=== PATIENT | female | born 1995 | race Caucasian/White ===

== ENCOUNTER → 2021-11-27 13:19 | Outpatient (CLI) | payer OTHER, SELFPAY ==
[2021-11-27 14:42] LABS: Appearance Urine UA CLEAR; Bilirubin Urine UA NEGATIVE (NEGATIVE); Color Urine UA YELLOW; Glucose Urine UA NEGATIVE (Negative); Ketones Urine UA NEGATIVE (NEGATIVE); Leukocyte Esterase Urine UA NEGATIVE (NEGATIVE); Nitrite Urine UA NEGATIVE (Negative); Occult Blood Urine UA NEGATIVE (Negative); Protein Urine UA NEGATIVE (Negative); Urobilinogen Urine UA 0.2 E.U./dL (0.2)
[2021-11-27 14:43] LABS: pH Urine UA 6.5 (4.5-8.0)
[2021-11-27 15:19] LABS: Add Manual Diff / Slide Review NO; Basophils Absolute Auto 0 /uL (0-100); Basophils Percent Auto 0.2 % (0-2); Eosinophils Absolute Auto 100 /uL (0-450); Eosinophils Percent Auto 1.4 % (2-4); Hematocrit 35.9 % (36-46); Hemoglobin 12.2 g/dL (12.0-16.0); Lymphocytes Absolute Auto 1600 /uL (1100-4500); Lymphocytes Percent Auto 20.6 % (25-40); Mean Corpuscular HGB Conc 34.1 % (30-36); Mean Corpuscular Hemoglobin 30.3 PG (26-34); Monocytes Absolute Auto 500 /uL (0-900); Monocytes Percent Auto 7.1 % (3-14); Neutrophils Absolute Auto 5400 /uL (1500-7000); Neutrophils Percent Auto 70.7 % (50-75); Platelet Count 227 X10^3/uL (150-400); Red Blood Cell Count 4.04 X10^6/uL (4.0-5.2); Red Cell Distribution Width 12.8 % (11.6-14.8); White Blood Cell Count 7.6 X10^3/uL (4.5-11.0)
[2021-11-28 05:33] LABS: RPR Screen Non Reactive (Non Reactive)
[2021-11-28 09:27] LABS: Varicella IgG Antibody 840 index (Immune >165)
[2021-11-28 15:37] LABS: Hepatitis B Surface Antigen NEGATIVE s/c (NEGATIVE)
[2021-11-28 15:41] LABS: HIV 1 & 2 Ab/Ag 4th Gen Combo NEGATIVE (NEGATIVE); Hep C Virus Ab w/Reflex Quant NEGATIVE s/c (NEGATIVE)
== END ==
PROVIDERS: Referring Provider Obstetrics & Gynecology; Visit Provider Obstetrics & Gynecology
DX: Z34.81 Encounter for supervision of other normal pregnancy, first trimester (principal); Z3A.10 10 weeks gestation of pregnancy
CPT/HCPCS: 36415; 80055; 81003; 86787; 86803; 86850; 86900; 86901; 87389

== ENCOUNTER → 2022-01-02 15:28 | Outpatient (CLI) | payer OTHER, SELFPAY | PROVIDERS: Visit Provider Obstetrics & Gynecology | DX: Z34.82 Encounter for supervision of other normal pregnancy, second trimester (principal); Z3A.15 15 weeks gestation of pregnancy | CPT/HCPCS: 87086 ==

== ENCOUNTER → 2022-01-08 13:17 | Outpatient (CLI) | payer OTHER, SELFPAY ==
[2022-01-10 20:42] LABS: AFP, Serum 73.7 ng/mL (.); Calc Gestational Age Ultrasound (.); Estriol, Free 1.68 ng/mL (.); Inhibin A, Dimeric 103.38 pg/mL (.); Inhibin A, MoM 0.63 (.); Maternal Ethnicity Caucasian (.); Maternal Weight 138 lbs (.); Number of Fetuses No (.); OSBR Risk 1 IN 806 (.); Results Report (.); Test Results *Screen Negative* (.); hCG, MoM 0.69 (.); hCG, Serum 30722 mIU/mL (.)
== END ==
PROVIDERS: Referring Provider Obstetrics & Gynecology; Visit Provider Obstetrics & Gynecology
DX: Z34.82 Encounter for supervision of other normal pregnancy, second trimester (principal); Z3A.16 16 weeks gestation of pregnancy
CPT/HCPCS: 36415; 82105; 82677; 84702; 86336

== ENCOUNTER → 2022-01-30 13:42 | Outpatient (CLI) | payer OTHER, SELFPAY ==
[2022-01-30 17:45] LABS: Urine N gonorrhoeae NOT DETECTED
[2022-01-30 17:46] LABS: Urine Chlamydia NOT DETECTED
== END ==
PROVIDERS: Visit Provider Obstetrics & Gynecology
DX: Z34.82 Encounter for supervision of other normal pregnancy, second trimester (principal); Z3A.19 19 weeks gestation of pregnancy
CPT/HCPCS: 87491; 87591

== ENCOUNTER → 2022-02-04 12:35 | Outpatient (CLI) | payer OTHER, SELFPAY ==
--- NOTE | 2022-02-04 12:36 | DI.US.S_ITS ---
PROCEDURE: US OB >= 14 WEEKS FETUS INDICATIONS: ANATOMY SCAN OUTSIDE/PRIOR DATING DATA: Last menstrual period (LMP): 09/16/2021. LMP-based estimated date of delivery (MUNA): 06/23/2022 First dating scan (date and location): 11/25/2021 Estimated date of delivery (MUNA) from first dating scan: 06/21/2022. The calculations are made using the ultrasound MUNA of 06/21/2022. TECHNIQUE: Real-time scanning was performed of the fetus, with image documentation and biometric measurements. COMPARISON: [facility], , OB >= 14 WEEKS FETUS, 01/30/2022, 13:29. FINDINGS: General: A single living intrauterine gestation is present. Presentation: Transverse left/breech. Placenta: Placental position is anterior , without previa. Amniotic fluid index: 16.8 cm, normal range is 5-24 cm. heart rate: 157 beats per minute. Maternal cervical canal: 4.5 cm long. Normal lower limit is 2.5 cm. biometrics: Biparietal diameter: 4.6 cm. 20 weeks 0 days Head circumference: 18.2 cm. 20 weeks 4 days Abdominal circumference: 16.4 cm. 21 weeks 3 days Femur length: 3.3 cm. 20 weeks 2 days Estimated gestational age by initial ultrasound: 20 weeks 3 days Composite gestational age from present scan: 20 weeks 4 days Estimated weight and percentile: 384 g. 71st percentile. Anatomic survey: Neuro: Ventricles are non-dilated at less than 10 mm. Cisterna magna is normal at 3-11 mm. Cerebellum is normal in size and morphology. Nuchal skin fold: Normal at less than 6 mm between 14-21 weeks gestational age. Face: Nose and lips, facial profile are normal. Spine: No evidence for spina bifida. Heart: 4-chambered heart is present, with normal ventricular outflow tracts. Diaphragm: Diaphragm is intact. Stomach: Left-sided stomach is present. Kidneys: No hydronephrosis. Normal is less than 5 mm in 2nd trimester, less than 7 mm in 3rd trimester. Cord: 3-vessel cord has orthotopic insertion. Bladder: Normal in size. Extremities: All 4 extremities identified. IMPRESSION: 1. Single live intrauterine with an estimated gestational age of 20 weeks 3 days. 2. Estimated weight 384 g. 74th percentile. 3. anatomy scan is normal. We strive to produce accurate, complete, and clear reports of imaging services. To assist us in improving patient care, this report was composed using standard report templates and voice recognition software. Therefore, it may contain abnormal punctuation, insertions and/or omissions. Occasional wrong-word or sound-alike substitutions may occur. Though we review the report and make efforts to correct it, we do recommend that the report be read carefully in proper context to recognize any text inaccuracies. Dictated by: Antonio Kaye M.D. on 02/04/2022 at 15:15 Approved by: Antonio Kaye M.D. on 02/04/2022 at 15:20
== END ==
PROVIDERS: Referring Provider Obstetrics & Gynecology; Visit Provider Obstetrics & Gynecology
DX: Z34.82 Encounter for supervision of other normal pregnancy, second trimester (principal); Z3A.20 20 weeks gestation of pregnancy
CPT/HCPCS: 76811

== ENCOUNTER → 2022-03-19 13:33 | Outpatient (CLI) | payer OTHER, SELFPAY ==
[2022-03-19 16:46] LABS: Hematocrit 28.5 % (36-46); Hemoglobin 10.1 g/dL (12.0-16.0)
[2022-03-19 16:52] LABS: GTT (PREG) 1 Hour PP 50gm Dose 140 mg/dL (76-139)
== END ==
PROVIDERS: Referring Provider Obstetrics & Gynecology; Visit Provider Obstetrics & Gynecology
DX: Z34.82 Encounter for supervision of other normal pregnancy, second trimester (principal); Z3A.26 26 weeks gestation of pregnancy
CPT/HCPCS: 36415; 82950; 85014; 85018

== ENCOUNTER → 2022-03-31 07:58 | Outpatient (CLI) | payer OTHER, SELFPAY ==
[2022-03-31 10:17] LABS: Glucose Fasting Gestational 71 mg/dL (76-95)
[2022-03-31 11:02] LABS: Glucose 1 Hour Gest 126 mg/dL (76-180)
[2022-03-31 11:43] LABS: Glucose 2 Hour Gest 115 mg/dL (76-155)
[2022-03-31 11:51] LABS: Glucose Tol Interp,Gestational INTERPRETATION
[2022-03-31 12:21] LABS: Glucose 3 Hour Gest 58 mg/dL (76-140)
== END ==
PROVIDERS: Referring Provider Obstetrics & Gynecology; Visit Provider Obstetrics & Gynecology
DX: R73.09 Other abnormal glucose (principal)
CPT/HCPCS: 36415; 82951; 82952

== ENCOUNTER 2022-05-02 07:34 | Outpatient (CLI) | payer OTHER, SELFPAY ==
[2022-05-02 08:28] LABS: Appearance Urine UA CLEAR; Bilirubin Urine UA NEGATIVE (NEGATIVE); Color Urine UA YELLOW; Glucose Urine UA NEGATIVE (Negative); Ketones Urine UA NEGATIVE (NEGATIVE); Leukocyte Esterase Urine UA 1+ (NEGATIVE); Nitrite Urine UA NEGATIVE (Negative); Occult Blood Urine UA NEGATIVE (Negative); Protein Urine UA NEGATIVE (Negative); Urobilinogen Urine UA 0.2 E.U./dL (0.2)
[2022-05-02 09:04] LABS: Bacteria Urine Few (2-10); Culture Indicated Urine Specimen Cultured; RBC Urine 0-1/HPF (0-5/HPF); Squamous Epithelial Cell Urine 1-5 /HPF (0-5/HPF); Transitional Epi Cells Urine 0-1/HPF (0-5/HPF); WBC Urine 1-5/HPF (0-5/HPF)
--- NOTE | 2022-05-02 09:34 | PM.OBTRLD ---
Visit Information Visit Information Date of evaluation: 05/02/22 Primary OB Provider: Michelle Samuels On-call OB Provider: Evonne Chavez Reason for Evaluation: Yes other Comments/Additional reasons for admission: cramping 26 yo brought in at [id number] EGA due to calling with cramping. She reports feeling crampy in her mid abdomen, points to a localized area left of and just inferior to umbilicus. No noted abdominal tightening. Denies feeling any contractions, reports it does not feel like contractions. Also reports that has general discomfort since standing this morning, with standing or leaning over has some discomfort in the midline from near pelvic bone to her umbilicus. Better when she was sitting. Feels some general tightness, discomfort at inner thighs as well. Does not feel any vaginal pressure, but would like a cervical check to make sure discomfort is not from head being low. Vital Signs Vital Signs: Afebrile BP 135/85 P86 [facility] Medical History (Updated 01/15/22 @ 06:38 by Michelle Samuels MD) ADHD Anemia (~2017) Anxiety Bacterial vaginosis Chlamydia (~2014) Migraine gingivitis Wears glasses Surgical History (Updated 11/25/21 @ 20:15 by Candie Mahan) Anesthesia History of wisdom tooth extraction Vaginal delivery (~05/03/18) Family History (Updated 11/25/21 @ 20:17 by Candie Mahan) Grandmother Clotting disorder Stroke Grandfather Cancer Grandfather Cancer Social History marital status: number of children: 1 household members: spouse and children lives independently: Yes housing: house pets and animals: No education level: high school occupational status: employed current occupational exposures/hazards: Yes ([employer]) seatbelt use: always water heater temp set < 120 deg: Yes (will check) working smoke detector in home: Yes fire extinguisher in home: Yes carbon monox detector in home: Yes firearms in home: No do you feel safe at home: Yes Smoking Status: Former smoker (vape) second hand exposure: No alcohol intake: former substance use type: does not use during the past year weight has: remained stable well-balanced diet: daily or most days daily servings fruits/ve-4 caffeine: Yes (200mg limit) Type(s) of exercise: walking and irregular exercise Objective Labs Labs: Laboratory Results - last 24 hr 05/02/22 08:00 Urine Color Yellow Urine Appearance Clear Urine pH 7.0 Ur Specific [place] 1.010 Urine Protein Negative Urine Glucose (UA) Negative Urine Ketones Negative Urine Occult Blood Negative Urine Nitrate Negative Urine Bilirubin Negative Urine Urobilinogen 0.2 Ur Leukocyte Esterase 1+ H Urine RBC 0-1/hpf Urine WBC 1-5/hpf Ur Squamous Epith Cells 1-5 /hpf Ur Transition Epith Cell 0-1/hpf Urine Bacteria Few (2-10) H Ur Culture Indicated? Specimen cultured Evaluation Evaluation Baseline heart rate: 135 Variability: Average (6-10) monitor accelerations: Present Monitor Decelerations: Absent Status: Category l Cervical dilation (cm): 0 Cervical effacement (%): 0 Diagnosis, Plan/Disposition Plan/Disposition Plan: 32 weeks, cramping. No signs of contractions. No signs any concerning etiology on abdominal exam and vital signs. FHR category 1, NST reactive. By her description, much of her discomfort appears musculoskeletal. Discussed to consider trying an abdominal binder to help with some of her discomfort. PTL precautions reviewed, discussed if she does note abdominal tightening, contractions even if not comfortable if regular, having 6 or more frequent per hour and persisting, then should call and return.. OB Disposition: home
== END 2022-05-02 09:35 | disposition home or self-care (01) ==
LOC: LABOR 09:47 → OB 05-05 10:17
PROVIDERS: Obstetrics & Gynecology; PCP Pediatrics; Referring Provider Obstetrics & Gynecology; Visit Provider Obstetrics & Gynecology
DX: O26.893 Other specified pregnancy related conditions, third trimester (principal); R10.9 Unspecified abdominal pain; Z3A.32 32 weeks gestation of pregnancy
CPT/HCPCS: 59025; 81001; 87086; G0378; G0379

== ENCOUNTER → 2022-05-27 10:20 | Outpatient (CLI) | payer OTHER, SELFPAY ==
[2022-05-28 11:51] LABS: Strep Grp B PCR POS for Grp B Strep
== END ==
PROVIDERS: Visit Provider Obstetrics & Gynecology
DX: Z34.83 Encounter for supervision of other normal pregnancy, third trimester (principal); Z3A.36 36 weeks gestation of pregnancy
CPT/HCPCS: 87653

== ENCOUNTER 2022-06-19 07:51 | Outpatient (CLI) | payer OTHER, SELFPAY | END 2022-06-19 09:15 | disposition home or self-care (01) | LOC: LABOR 09:37 → OB 06-23 11:46 | PROVIDERS: Referring Provider Obstetrics & Gynecology; Visit Provider Obstetrics & Gynecology | DX: Z34.83 Encounter for supervision of other normal pregnancy, third trimester (principal); Z3A.39 39 weeks gestation of pregnancy | CPT/HCPCS: 59025; 84112; G0378; G0379 ==

== ENCOUNTER 2022-06-22 15:27 | Inpatient (IN) | payer OTHER, SELFPAY ==
--- NOTE | 2022-06-22 15:44 | P.HPOB_ITS ---
OB HPI Date/Time Date of admission: 06/22/22 Date Patient Seen: 06/22/22 Time Patient Seen: 15:40 History of Present Condition Chief complaint: maternity MUNA Calculator Estimated Delivery Date Method Current WG Current Estimate 06/23/22 LMP (Certain) 39w 6d Other Estimates 06/21/22 Ultrasound #1 40w 1d Estimated Gestational Age (weeks): 39.6 : 2 Para: 1 Narrative: 26YO @ [id number] by LMP, concordant with early ultrasound, presents for evaluation of labor. Began juju at 2pm, with contractions immediately strong and 3 minutes apart. Has noticed some bloody discharge when wiping. No leaking fluid. Planning an epidural. Is aware her primary OB, , is out of town this week. Accompanied by supportive . care: good care, initiated at week # (10), number of visits (13) and pounds weight gain (58) Dating criteria OB: LMP confirmed by 1st trimester US Ultrasounds: normal mid trimester US Obstetrical complications: other (anemia- received IV Fe x2 doses) Medical complications OB: none Preadmission Labs Last OB Lab Results: Blood Type AB Positive 11/27/21 13:58 Antibody Screen Negative 11/27/21 13:58 Hematocrit 28.5 % (36-46) L 03/19/22 14:46 Hemoglobin 10.1 g/dL (12.0-16.0) L 03/19/22 14:46 Hepatitis B Surface Antigen Negative s/c (NEGATIVE) 11/27/21 13 :58 Hepatitis C Antibody Negative s/c (NEGATIVE) 11/27/21 13:58 Rubella Antibody 149.0 IU/mL (>15) 11/27/21 13:58 Varicella-Zoster IgG Antibody 840 index (Immune >165) 11/27/21 13:58 Glucose 1 Hour 140 mg/dL (76-139) H 03/19/22 16:44 Group B Streptococcus (PCR) Pos for grp b strep H 05/27/22 10:2 0 Glucose Tolerance Testing: Fasting (71), 1 hr (126), 2 hr (115) and 3 hr (58) -: Chlamydia screen: negative and Gonorrhea screen: negative Genetic Screens: Quad screen: Normal Prior (ies) Past Pregnancies Del. Date GA/Weeks Labor Lgth Wt Sex Route Outcome Anesthesia Place Delv Breastfeed Preg Comp Name 05/03/18 40 12 3.714 kg Female vaginal live - full term epidural ANGELIA [place] 2 1/2 yrs other Mei Delivery Date: 05/03/18 Last Updated by: Adrianna Burch RReguloNRegulo Anemia Evaluation Evaluation Baseline heart rate: 150 Variability: Moderate (11-25) monitor accelerations: Present Monitor Decelerations: Absent Contraction Frequency (minutes): 2 Uterine Contraction Intensity: Moderate Status: Category l Dilation (cm): 4 Effacement (%): 90 station: -1 Position of cervix: posterior Consistency: soft PFSH Medical History ADHD Anemia (~2017) Anxiety Bacterial vaginosis Chlamydia (~2014) Migraine gingivitis Wears glasses Surgical History Anesthesia History of wisdom tooth extraction Vaginal delivery (~05/03/18) Family History Grandmother Clotting disorder Stroke Grandfather Cancer Grandfather Cancer Social History marital status: number of children: 1 household members: spouse and children lives independently: Yes housing: house pets and animals: No education level: high school occupational status: employed current occupational exposures/hazards: Yes ([employer]) seatbelt use: always water heater temp set < 120 deg: Yes (will check) working smoke detector in home: Yes fire extinguisher in home: Yes carbon monox detector in home: Yes firearms in home: No do you feel safe at home: Yes Smoking Status: Former smoker (vape) second hand exposure: No alcohol intake: former substance use type: does not use during the past year weight has: remained stable well-balanced diet: daily or most days daily servings fruits/ve-4 caffeine: Yes (200mg limit) Type(s) of exercise: walking and irregular exercise Meds Home Medications and Allergies Home Medications Medication Instructions Recorded Confirmed Type acetaminophen 325 mg capsule 650 mg PO Q6H PRN 11/18/21 06/17/22 History prenat.vits,candido,jxo-[id number] 1 tab PO DAILY 11/18/21 06/17/22 History fluconazole 150 mg tablet 150 mg PO Q3D 2 doses #2 tabs 01/10/22 06/17/22 Rx (Diflucan) Allergies Allergy/AdvReac Type Severity Reaction Status Date / Time No Known Drug Allergies Allergy Unverified 06/17/22 15:01 Review of Systems Review of Systems ROS: Yes All systems reviewed with the patient and are negative except as otherwise documented OB Exam Narrative Exam Narrative: VS: BP 111/70mmHg, HR 87bpm, T 36.3C Temporal Resp Effort & Inspection: normal respiratory effort Auscultation: clear to auscultation bilaterally Cardio Rate: regular rate Rhythm: regular rhythm Heart Sounds: S1 normal and S2 normal Objective Labs Labs: Admit CBC: WBC-6.2, Hgb-10.9, Hct-32.2, Plt-180 Assessment and Plan Assessment and Plan Assessment and Plan narrative: A: Term [place] Active labor GBS prophylaxis indicated Anemia, mild Cat I FHR P: Admit, routine orders. PCN for GBS prophylaxis. Expectant management of labor. Epidural when requested. Notified OB back-up, , who will be called to attend the . Reassess in 4 hours or sooner, PRN.
[2022-06-22 16:11] LABS: Add Manual Diff / Slide Review NO; Basophils Absolute Auto 0 /uL (0-100); Basophils Percent Auto 0.3 % (0-2); Eosinophils Absolute Auto 100 /uL (0-450); Eosinophils Percent Auto 0.8 % (2-4); Hematocrit 32.2 % (36-46); Hemoglobin 10.9 g/dL (12.0-16.0); Lymphocytes Absolute Auto 1300 /uL (1100-4500); Lymphocytes Percent Auto 21.5 % (25-40); Mean Corpuscular Hemoglobin 28.1 PG (26-34); Mean Corpuscular Volume 82.7 fL (80-100); Monocytes Absolute Auto 500 /uL (0-900); Monocytes Percent Auto 7.4 % (3-14); Neutrophils Absolute Auto 4300 /uL (1500-7000); Platelet Count 180 X10^3/uL (150-400); Red Blood Cell Count 3.89 X10^6/uL (4.0-5.2); Red Cell Distribution Width 15.1 % (11.6-14.8); White Blood Cell Count 6.2 X10^3/uL (4.5-11.0)
[2022-06-22] MEDS: PENICILLIN G POTASSIUM 5,000,000 UNIT in DEXTROSE 5% IN WATER 250 ML 250 UNIT IV (16:11)
[2022-06-22] MEDS: LACTATED RINGERS 1,000 ML 100 ML IV (16:12)
[2022-06-22 16:32] LABS: COVID19 -Nasal RAPID Negative (Negative)
[2022-06-22] MEDS: EPI EPIDURAL (17:10)
[2022-06-22] MEDS: FENT 2 MCG/ML EPIDURAL (17:10)
[2022-06-22] MEDS: BUPIV 0.125% EPIDURAL (17:10)
[2022-06-22 17:40] VITALS: BP 108/63
--- NOTE | 2022-06-22 17:49 | PM.OBPNLAB ---
Date/Time Date Patient Seen: 06/22/22 Time Patient Seen: 17:49 Pain Control Pain control: epidural Comments: Met with pt. H&P and office notes reviewed. I had met the patient in the past in OB triage. Patient admitted now labor. She just received her epidural and is comfortable with the epidural. She received her 1st dose of penicillin for GBS prophylaxis. She is not feeling any pressure. For cervical exam was approximately 2 hours ago. Pelvic Exam Dilation (cm): 4 Effacement (%): 90 station: -1 Comments: Cervix not rechecked at this time. Contractions Contraction frequency (min): 6 Contraction intensity: Moderate Status status: Category l Monitor Accelerations: Present Monitor Decelerations: Absent Monitor Variability: Moderate Assessment and Plan Assessment: active labor Plan: continuous present management Comments: EFM category 1. She received a 1st dose ofpenicillin for GBS prophylaxis. Will recheck her cervix in 2 hours, earlier as needed.
[2022-06-22] MEDS: PENICILLIN G POTASSIUM 3,000,000 UNIT/50 ML FROZ.PIGGY 100 UNIT IV (20:01)
--- NOTE | 2022-06-22 20:22 | P.PNOB_ITS ---
Date/Time Date Patient Seen: 06/22/22 Time Patient Seen: 20:10 Pain Control Pain control: epidural Comments: Comfortable with the epidural. Feeling some hormone type shakes. Not feeling any pressure. Pelvic Exam Dilation (cm): 5 Effacement (%): 80 station: -2 Amniotic membrane status: Intact Comments: vertex not well enough applied for AROM. Contractions Contraction frequency (min): 4 Contraction pattern: Regular Contraction intensity: Moderate Status status: Category l Heart Rate Baseline: 135 Monitor Accelerations: Present Monitor Decelerations: Variable (rare) Monitor Variability: Moderate Assessment and Plan Assessment: other (early labor) Plan: continuous present management Comments: Cat 2 EFM, rare variable decel. Overall reassuring She just received her 2nd dose of penicillin. 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 Offered, patient declines Pitocin augmentation. Vertex not well enough applied currently for AROM. She would not desires AROM for now anyway. Currently desires to let labor progress naturally. Will re-check cervix in approx 4 hours.
--- NOTE | 2022-06-22 22:14 | PM.OBPNLAB ---
Date/Time Date Patient Seen: 06/22/22 Time Patient Seen: 22:14 Pain Control Pain control: epidural Comments: feeling some pressure Pelvic Exam Dilation (cm): 9 Effacement (%): 80 station: +1 Amniotic membrane status: Ruptured (SROM@ 2110) Comments: anterior lip. Unable to reduce with a push Contractions Contraction frequency (min): 2 Contraction pattern: Regular Contraction intensity: Moderate Status status: Category ll Heart Rate Baseline: 145 Monitor Accelerations: Periodic Monitor Decelerations: Early and Late (occasional) Monitor Variability: Minimal (episodes average variability, but more episodes minimal now) Assessment and Plan Assessment: active labor Comments: anticipate pushing soon
--- NOTE | 2022-06-23 00:33 | P.PCNOB_ITS ---
Labor & Delivery Delivery date: 06/22/22 Intrapartal Events: Deceleration (non repetitive in 2nd stage) Cervical ripening method: none Induction method: none Delivery monitor: none Route of delivery: Episiotomy description: None L&D Laceration Description: Perineal - 2nd Degree Delivery repair: chromic Quantitative Blood Loss: 300 Anesthesia Type: Epidural Complications: none Narrative: Of note: long umbilical noted. Measure 118cm over intact perineum. Placenta delivered spontaneously/intact/three-vessel cord. 2nd degree perineal lac repaired. She progressed to completely dilated. ?She began pushing. She pushed approximately 30 minutes and had a spontaneous vaginal delivery over an intact perineum from the CHARLES position. ?Nuchal cord x 2 reduced. On delivery cord then also loosely wrapped around body and wrapped around leg twice. ?After delivery of the head, anterior followed by posterior shoulder were delivered without difficulty with the patient pushing, followed by the remainder of the body. ?A b anthony boy was delivered at 2318. The baby cried spontaneously, appeared vigorous and was placed on the maternal abdomen. ?After 4 minutes, cord was clamped and cut. Placenta delivered spontaneously approximately 16 minutes later. ?She had normal bleeding after delivery of the placenta. ?She was given routine Pitocin IV. On inspection she had a second-degree perineal laceration?which was repaired in the usual fashion with 3-0 chromic She did well and was left to recover in good condition. [place] Baby 1: Infant gender: Male Presentation: vertex Placenta delivery description: Spontaneous Cord Vessel Description: 3 Vessels, Nuchal Cord (x2), Around Body x1 and Around Extremity x2 score (1 min): 9 score (5 min): 10 weight: 8 lb 12.285 oz Plan for aftercare: Routine care
[2022-06-23] MEDS: IBUPROFEN 600 MG TABLET PO ×4 (02:10→21:46)
[2022-06-23] MEDS: ACETAMINOPHEN 325 MG TABLET 650 MG PO ×4 (02:10→21:46)
--- NOTE | 2022-06-23 04:10 | PC.NURSE ---
Pitocin 30mu/500lr started at 50ml/hr at 2328 per MD verbal order. Pitocin increased to 200ml/hr at 2334 per MD verbal order. Pitocin was completed around 0300am. Medication would not allow nurse to chart. Error for incorrect unit.
[2022-06-23] MEDS: DOCUSATE 100 MG CAPSULE PO (08:35)
--- NOTE | 2022-06-23 17:32 | PM.OBPN.1 ---
Subjective - OB Subjective Patient comments: tolerating diet and other (Uncomfortable uterine cramping, but controlled with the ibuprofen) [place] baby status: doing well and nursing well feeding status: exclusively breast feeding Narrative: Lochia normal. Voiding without difficulty. Date Patient Seen: 06/23/22 Time Patient Seen: 16:50 Exam Vital Signs (past 8 hours): Temp 97.8F, Pulse 76, BP 104/69 RR 18 Narrative Exam Narrative: General: ?Well-appearing female Abdomen: ?Soft, nontender, nondistended. ?Fundus U-1 firm, nontender Extremities: ?No pedal edema Objective Labs Result Diagrams: 06/22/22 16:00 Assessment & Plan Plan day: 1 plan OB: routine care Comments: Doing well Time Spent With Patient Time: Total time spent is greater than 50% in coordination of care (as documented) at patient's floor/unit and/or counseling patient: Time with patient: less than 15 minutes
[2022-06-23] MEDS: LANOLIN OINT 7 GM 1 APPLIC TOP (21:47)
--- NOTE | 2022-06-24 05:42 | PM.OBDS.1 ---
Discharge Providers Provider Date of admission: 06/22/22 15:27 Discharge Date: 06/24/22 Primary care physician: Flower GALAN Provider Consults: 06/24/22 00:49 Consult to Employment Law Attorney Routine Comment: Discharge provider: Evonne Chavez MD Summary Hospital Course Date Patient Seen: 06/24/22 Hospital Course: 6YO @ [id number] by LMP, concordant with early ultrasound, presented in labor at 4 cm dilated.? She received an epidural for anesthesia. She had spontaneous rupture membranes and continued to progress in labor to completely dilated. She had a spontaneous vaginal delivery of a male weighing 8 lb 12 oz with Apgars of 9 and 10. She has had a normal course. She is without problems. Her lochia has remained normal. Her perineal discomfort and routine uterine cramping is controlled with Tylenol and ibuprofen. Today on day 2, she reports her uterine cramping now is only when she is . Her blood pressure has remained normal. Vital signs are normal. The baby is doing well and has been discharged. Patient will be discharged home on day 2 with a routine visit in 6 weeks. Peripartum Data Infant Delivery Method: Natural Vaginal Laceration Description: Perineal - 2nd Degree complications: none 1: Gender: Male Disposition of : home Discharge Diagnosis (1) Status post vaginal delivery: Status: Acute Problem Details: Discharge to home. Follow-up in 6 weeks for a routine appointment. Status at Discharge Cognitive/behavioral status at discharge: oriented Functional status at discharge: independent ambulation Overall status at discharge: patient is progressing back to baseline Time Spent with Patient Time attestation: Total time spent providing and/or coordinating discharge services: Objective Labs Result Diagrams: 06/22/22 16:00 Discharge Plan Discharge Plan Patient Disposition: Home Provider Discharge Comment: Status post spontaneous vaginal delivery at 39 weeks Discharge orders & Medications Prescriptions: New acetaminophen 325 mg Tablet 650 mg PO Q6HR PRN (Reason: Pain, Mild (1-3)) Qty: 1 0RF ibuprofen 600 mg Tablet 600 mg PO Q6HR PRN (Reason: Pain, Mild (1-3)) Qty: 30 0RF Continued prenat.vits,candido,[id number]-[id number]-xfuzt Tablet 1 tab PO DAILY acetaminophen 325 mg capsule 650 mg PO Q6H PRN (Reason: Pain (Scale Score 1-3)) Discontinued fluconazole [Diflucan] 150 mg tablet 150 mg PO Q3D Qty: 2 6RF Rx Instructions: Repeat second dose 72 hrs. after first dose. Follow up/Referrals: Michelle Samuels MD [Physician] - (Please follow up with Dr. Samuels: August 07 @ 3:30pm- appt. Please arrive 15 minutes early. If you have any questions/concerns please call ) Discharge Health Status Multidrug resistant organism: No MDRO Diet/Activity/Treatments Diet: Regular Skin/Wound/Dressing Care Report to your healthcare provider any signs of infection, such as:: chills, fever and increased pain Visit Report/Discharge Packet Instructions: DI for Depression, DI for and Nipple Soreness Stand Alone Forms: Discharge: Care Discharge Data Primary Care Provider: Flower Lopez
[2022-06-24 08:29] VITALS: TEMP 36.7
[2022-06-24] MEDS: IBUPROFEN 600 MG TABLET PO (08:29)
[2022-06-24] MEDS: DOCUSATE 100 MG CAPSULE PO (08:29)
[2022-06-24 08:31] VITALS: TEMP 36.7
[2022-06-24] MEDS: ACETAMINOPHEN 325 MG TABLET 650 MG PO (08:31)
[2022-06-24 10:59] VITALS: BP 114/77; PULSE 77; RESP 16; TEMP 36.7
== END 2022-06-24 11:12 | disposition home or self-care (01) | DRG 807 ==
PROVIDERS: Admitting Provider Obstetrics & Gynecology; Referring Provider Obstetrics & Gynecology; Visit Provider Obstetrics & Gynecology
DX: O99.824 Streptococcus B carrier state complicating childbirth (principal); Z37.0 Single live birth; Z3A.39 39 weeks gestation of pregnancy; O99.02 Anemia complicating childbirth; O70.1 Second degree perineal laceration during delivery; Z20.822 Contact with and (suspected) exposure to COVID-19
CPT/HCPCS: 01967; 36415; 59050; 59400; 59409; 85025; 86850; 86900; 86901; 87635; C9803; G0379; J2540

== ENCOUNTER 2024-03-06 10:22 | Emergency (ER) | payer OTHER, SELFPAY ==
[2024-03-06 11:02] VITALS: BMI 23.3
[2024-03-06 11:07] VITALS: BP 98/57; PULSE 116; RESP 20; O2SAT 100
[2024-03-06 11:17] VITALS: TEMP 37.1
[2024-03-06 12:20] VITALS: PULSE 106; O2SAT 100
[2024-03-06 12:22] VITALS: BP 101/53; O2SAT 99
--- NOTE | 2024-03-06 12:24 | ED.SKABFB ---
HPI - Skin/Abscess/Foreign Bdy General Chief complaint: Skin/Abscess/Foreign Body Stated complaint: mastitis Time Seen by Provider: 03/06/24 11:15 History of Present Illness HPI narrative: 28-year-old female presents for left breast tenderness for 1 day. She is currently a [id number] child. She states that this feels similar to mastitis that she had in previous . No medications taken prior to arrival. Related Data Home Medications Medication Instructions Recorded Confirmed acetaminophen 325 mg capsule 650 mg PO Q6H PRN Pain (Scale 11/18/21 08/07/22 Score 1-3) prenat.vits,candido,apc-xsum-hpudf 1 tab PO DAILY 11/18/21 08/07/22 Previous Rx's Medication Instructions Recorded acetaminophen 325 mg tablet 650 mg (2 x 325 mg) PO Q6HR PRN 06/24/22 Pain, Mild (1-3) #1 tab ibuprofen 600 mg tablet 600 mg PO Q6HR PRN Pain, Mild 06/24/22 (1-3) #30 tabs amoxicillin 875 mg-potassium 1 tab PO Q12H #28 tabs 03/06/24 clavulanate 125 mg tablet Allergies Allergy/AdvReac Type Severity Reaction Status Date / Time No Known Drug Allergies Allergy Verified 03/06/24 11:06 Patient History Medical History Wears glasses Chlamydia (~2014) gingivitis Migraine Bacterial vaginosis ADHD Anxiety Anemia (~2017) Surgical History Anesthesia Vaginal delivery (~05/03/18) History of wisdom tooth extraction Family History Grandmother Clotting disorder Stroke Grandfather Cancer Grandfather Cancer Social History marital status: number of children: 1 household members: spouse and children lives independently: Yes housing: house pets and animals: No education level: high school occupational status: employed current occupational exposures/hazards: Yes ([employer]) seatbelt use: always water heater temp set < 120 deg: Yes (will check) working smoke detector in home: Yes fire extinguisher in home: Yes carbon monox detector in home: Yes firearms in home: No do you feel safe at home: Yes Smoking Status: Former smoker second hand exposure: No alcohol intake: former substance use type: does not use during the past year weight has: remained stable well-balanced diet: daily or most days daily servings fruits/ve-4 caffeine: Yes (200mg limit) Type(s) of exercise: walking and irregular exercise Smoking Status: Former smoker alcohol intake frequency: holidays/special occasions only Alcohol type: beer Exam Initial Vital Signs Initial Vital Signs: Vital Signs Oxygen Delivery Method Room Air 03/06/24 11:02 Const: Awake, alert, no acute distress, nontoxic appearing Breast: Layout Man present. Symmetric size and shape, no skin dimpling, no breast discharge, right breast normal, left breast with warmth and tenderness in the upper outer quadrants of the breast. Skin: Warm, Dry, intact, no rashes Neuro: AO x3, CN II-XII grossly intact, moves all extremities Course Orders Ordered: Discontinued Medications Ketorolac Tromethamine (Ketorolac 30 Mg/Ml Vial) 30 mg IM NOW ONE Stop: 03/06/24 12:26 Last Admin: 03/06/24 12:28 Dose: 30 mg Documented By: VISH Vital Signs Vital signs: Vital Signs - 8 hr 03/06/24 11:02 03/06/24 11:07 03/06/24 11:17 Temperature 98.8 F Pulse Rate 116 H Respiratory Rate 20 Blood Pressure 98/57 L Pulse Oximetry 100 Oxygen Delivery Method Room Air MDM - Skin/Abscess/Foreign Bdy MDM Narrative Medical decision making narrative: Breast pain for 1 day concerning for mastitis. No other concerning skin changes. Patient given a Toradol shot, counseled to continue as desired. Antibiotics sent to pharmacy of choice. Discharge Plan Departure Patient Disposition: Home Clinical Impression: Mastitis Instructions: DI for Mastitis Activity Restrictions/Additional Instructions: FINISH ALL YOUR ANTIBIOTICS EVEN IF YOU FEEL BETTER. FOLLOW UP WITH EITHER YOUR PRIMARY CARE DOCTOR OR YOUR OBGYN Prescriptions: New amoxicillin-pot clavulanate 875-125 mg tablet 1 tab PO Q12H Qty: 28 0RF No Action prenat.vits,candido,jhu-spqe-rimdn Tablet 1 tab PO DAILY acetaminophen 325 mg capsule 650 mg PO Q6H PRN (Reason: Pain (Scale Score 1-3)) acetaminophen 325 mg Tablet 650 mg PO Q6HR PRN (Reason: Pain, Mild (1-3)) Qty: 1 0RF ibuprofen 600 mg Tablet 600 mg PO Q6HR PRN (Reason: Pain, Mild (1-3)) Qty: 30 0RF Referrals: [facility] [Primary Care Provider] - Stand Alone Forms: Patient Portal/API
[2024-03-06] MEDS: KETOROLAC 30 MG/ML VIAL IM (12:28)
== END 2024-03-06 12:44 | disposition home or self-care (01) ==
PROVIDERS: Emergency Provider Emergency Medicine
DX: N61.0 Mastitis without abscess (principal)
CPT/HCPCS: 96372; 99283; J1885

== ENCOUNTER → 2024-06-10 08:24 | Outpatient (CLI) | payer OTHER, SELFPAY ==
--- NOTE | 2024-06-10 08:26 | DI.US.S_ITS ---
PROCEDURE: US PELVIC COMPLETE INDICATIONS: DYSMENORRHEA TECHNIQUE: Real-time scanning was performed of the pelvic organs, with image documentation. Additional endovaginal scanning was necessary due to incomplete visualization of the adnexal and endometrial structures by transabdominal scanning. COMPARISON: None. FINDINGS: Uterus: Uterus is anteverted and normal in size at 8.8 x 4.7 x 6.6 cm. The myometrium is homogeneous. The endometrium measures 10 mm combined thickness. Ovaries: The right ovary measures 2.4 x 3.5 x 2.4 cm, with a calculated ovarian volume of 11 cc. The left ovary measures 2.1 x 2.9 x 1.6 cm, with a calculated ovarian volume of 5 cc. The ovaries have a normal sonographic appearance. Greater than 12 follicles can be seen in each ovary. No adnexal masses are seen. Other: No pathologic free abdominal or pelvic fluid. IMPRESSION: Greater than 12 follicles per ovary, which can be seen in the clinical setting of PCOS. We strive to produce accurate, complete, and clear reports of imaging services. To assist us in improving patient care, this report was composed using standard report templates and voice recognition software. Therefore, it may contain abnormal punctuation, insertions and/or omissions. Occasional wrong-word or sound-alike substitutions may occur. Though we review the report and make efforts to correct it, we do recommend that the report be read carefully in proper context to recognize any text inaccuracies. Dictated by: John Schmitz M.D. on 06/10/2024 at 15:02 Approved by: John Schmitz M.D. on 06/10/2024 at 15:03
== END ==
PROVIDERS: Referring Provider Student in an Organized Health Care Education/Training Program; Visit Provider Student in an Organized Health Care Education/Training Program
DX: N94.6 Dysmenorrhea, unspecified (principal)
CPT/HCPCS: 76830; 76856